=== PATIENT | male | born 1960 | race Caucasian/White ===

== ENCOUNTER 2018-03-02 16:29 | Emergency (ER) | payer OTHER ==
[2018-03-02] MEDS ORDERED: fentaNYL CITRATE INJ 50 MCG/ML AMP IV ONE (16:56)
[2018-03-02] MEDS ORDERED: MIDAZOLAM INJ 5 MG/5 ML VIAL IV ONE (16:56)
--- NOTE | 2018-03-02 16:58 | ED.PDOC ---
History of Present Illness - General Chief Complaint: Upper Extremity Injury Stated Complaint: right shoulder pain Time Seen by Provider: 03/02/18 16:56 Source: patient Additional Information: INJURED RIGHT SHOULDER WHILE TUBING AT THE [employer] JUST PRIOR TO ARRIVAL NO OTHER INJURY REPORTED HE HAS HISTORY OF RESTLESS LEG SYNDROME - History of Present Illness Occurred: just prior to arrival Pain - Upper Extremity: severe: Shoulder, right Method of Injury: fell Improving Factors: nothing Worsening Factors: movement Allergies/Adverse Reactions: Allergies Cefazolin [From Anc] Allergy (Verified 03/02/18 16:43) Home Medications: Ambulatory Orders Acetamin W/Cod #3 Tab [Tylenol w/CODEINE #3] 1 ea PO Q6HR PRN #40 tab 03/02/18 Review of Systems - Review of Systems Constitutional: States: no symptoms reported EENTM: States: no symptoms reported Respiratory: States: no symptoms reported Cardiology: States: no symptoms reported Gastrointestinal/Abdominal: States: no symptoms reported Genitourinary: States: no symptoms reported Musculoskeletal: States: see HPI Skin: States: no symptoms reported Neurological: States: no symptoms reported Endocrine: States: no symptoms reported Past Medical History (General) - Patient Medical History Surgical History: other - Vaccination History Hx Influenza Vaccination: No Hx Pneumococcal Vaccination: No - Social History Hx Tobacco Use: No Hx Alcohol Use: Yes - 2-3 beers today Hx Substance Use: No Hx Substance Use Treatment: No - Female History Patient is a Female of Child Bearing Age (10 -59 yrs old): No Family Medical History - Family History Mother Family History: Unknown Physical Exam - Physical Exam General Appearance: Alert, Obvious distress Eyes, Ears, Nose, Throat Exam: PERRL/EOMI, normal ENT inspection, TMs normal Neck: non-tender, full range of motion, supple Cardiovascular/Respiratory: regular rate, rhythm, no M/R/G, normal peripheral pulses Abdominal Exam: non-tender, no organomegaly Back Exam: normal inspection, no CVA tenderness, no vertebral tenderness Shoulder Exam: asymmetry - DEFORMITY RIGHT SHOULDER CONTOUR SUGGESTIVE OF DISLOCATION OF SHOULDER JOINT Elbow/Forearm Exam: normal inspection, non-tender, no evidence of injury, normal ROM Wrist Exam: normal inspection, non-tender, no evidence of injury Hand Exam: normal inspection, non-tender, no evidence of injury, normal ROM Mental Status: alert, oriented x 3 Skin Exam: normal color Progress - Results/Orders Results/Orders: 17.36 PT IS DOING WELL POST REDUCTION X RAY REVIEWED ADVISED TO WEAR THE SLING TILL HIS FOLLOW UP WITH HIS ORTHOPEDIC SURGEON BACK IN [facility] HIS HOME Procedures - Joint Reduction right shoulder Reduction Attempts: 1 - REDUCTION DONE WITHOUT ANY DIFFICULTY POST REDUCTION FILM SATISFACTORY Pre-Procedure NV Exam: Yes Post Joint Reduction Film: joint reduced Departure - Departure Clinical Impression: Shoulder dislocation Time of Disposition: 17:31 Disposition: Discharge to Home or Self Care Condition: Good Departure Forms: ED Discharge - Pt. Copy, Patient Portal Self Enrollment Instructions: DI for Arm Pain Diet: resume usual diet Prescriptions: Acetamin W/Cod #3 Tab [Tylenol w/CODEINE #3] 1 ea PO Q6HR PRN #40 tab PRN Reason: Mild To Moderate Pain Home Medications: Ambulatory Orders Acetamin W/Cod #3 Tab [Tylenol w/CODEINE #3] 1 ea PO Q6HR PRN #40 tab 03/02/18
[2018-03-02] MEDS ORDERED: SODIUM CHLORIDE 0.9% 500ML 500 ML ONE (17:00)
--- NOTE | 2018-03-02 17:28 | RAD ---
EXAM DESCRIPTION: Shoulder,Right 1 View CLINICAL HISTORY: 57 years Male post reduction COMPARISON: 03/02/2018 TECHNIQUE: RIGHT shoulder single view FINDINGS: There has been interval relocation of the right shoulder with comparison to the previous examination. No definite fracture is noted. Mild degenerative changes. Acromioclavicular joint appears maintained. IMPRESSION: Interval relocation of the right shoulder as compared to the earlier exam Electronically signed by: Mile Chahal MD 03/02/2018 5:26 PM CDT
[2018-03-02] MEDS ORDERED: SODIUM CHLORIDE 0.9% 500ML 500 ML IVS PRN (18:36)
[2018-03-02 18:41] VITALS: BP 137/89; TEMP 97.6; O2SAT 96
--- NOTE | 2018-03-09 16:59 | RAD ---
EXAM DESCRIPTION: Shoulder,Right 2 or More Views CLINICAL HISTORY: water sport injury COMPARISON: None FINDINGS: 2 view(s) submitted. There is a dislocation of the right humerus head. It is inferior to the glenoid. Whether it is posterior or anterior is unclear on these two views. No definite fracture. IMPRESSION: Right shoulder dislocation.. Electronically signed by: Minesh Suárez 03/09/2018 4:58 PM CDT
== END 2018-03-02 18:30 | disposition home or self-care (01) ==
LOC: ER 16:29
DX: S43.004A Unspecified dislocation of right shoulder joint, initial encounter (principal); X58.XXXA Exposure to other specified factors, initial encounter; Y93.16 Activity, rowing, canoeing, kayaking, rafting and tubing; Y92.828 Other wilderness area as the place of occurrence of the external cause
CPT/HCPCS: 73020; 73030; J2250; J3010; J7040